=== PATIENT | female | born 1965 | race Caucasian/White ===

== ENCOUNTER → 2021-01-24 14:12 | Outpatient (CLI) | payer BC, SELFPAY ==
--- NOTE | ~2021-01-24 | MM_ITS ---
EXAMINATION: MM screening [facility] w etelvina HISTORY: Screening TECHNIQUE: Craniocaudal and mediolateral oblique 3-D tomosynthesis images were obtained and synthetic 2-D images were generated. CAD analysis was submitted and interpreted. COMPARISON: 12/17/2011 BREAST PARENCHYMAL COMPOSITION: There are scattered areas of fibroglandular density. FINDINGS: There are developing clusters of indeterminate calcifications in the upper outer quadrant o f both breasts. There are developing masses in both breasts as well. IMPRESSION: 1. Developing indeterminate bilateral breast calcifications and bilateral breast masses. 2. Additional mammographic views and possible breast ultrasound are recommended. BI-RADS Category 0: Incomplete: Needs additional imaging evaluation. Reviewed, dictated and finalized at location A. IMPRESSION: 1. Developing indeterminate bilateral breast calcifications and bilateral breas t masses. 2. Additional mammographic views and possible breast ultrasound are recommended . BI-RADS Category 0: Incomplete: Needs additional imaging evaluation.
== END ==
PROVIDERS: PCP Nurse Practitioner; Visit Provider Nurse Practitioner
DX: Z12.31 Encounter for screening mammogram for malignant neoplasm of breast (principal); R92.8 Other abnormal and inconclusive findings on diagnostic imaging of breast
CPT/HCPCS: 77063; 77067

== ENCOUNTER → 2021-03-04 07:57 | Outpatient (CLI) | payer BC, SELFPAY ==
--- NOTE | ~2021-03-04 | MMUS_ITS ---
EXAMINATION: MM diagnostic [facility] BI w etelvina, US breast BI complete HISTORY: Bilateral breast calcifications and bilateral breast masses reported on 01/24/2021 screening mammogram TECHNIQUE: Additional 3-D tomosynthesis images of both breasts were performed and synthetic 2-D image s were generated. CAD analysis was submitted and interpreted. High resolution complete bilateral [facility] ultrasound was performed. COMPARISON: 01/24/2021 bilateral digital screening mammogram 12/17/2011 bilateral diagnostic digital mammogram and bilateral breast ultrasound examination FINDINGS: MAMMOGRAPHIC FINDINGS: There are numerous scattered bilateral benign-appearing microcalcifications. Scattered bilateral circ umscribed opacities are noted, the largest measuring up to approximately 11 mm dimension in the upper outer right breast. No suspicious mass or architectural distortion is detected mammographically. ULTRASOUND: There are multiple bilateral simple and septated cysts, the largest situated on the right at 11:00 me asuring up to 7 x 9 x 14 mm. On the right at 10:00 7 cm from the nipple there is a parallel circumscribed 3.7 x 7 x 7.7 mm heterog eneous hypoechoic parallel circumscribed lesion with minimal internal vascularity signal on [facility]. There is through transmission and suggestions posterior enhancement. Six-month follow-up r ight breast ultrasound examination with attention to this area is recommended. On the left at 2:00 7 cm from the nipple there is a 4 x 4 by 5 mm hypoechoic lesion with no internal vascularity or posterior shadowing, likely benign. Six-month follow-up left breast ultrasound is anthony mmended with attention to this area. IMPRESSION: 1. Probable benign findings 2. Bilateral six-month follow-up breast ultrasound examination is recommended. BI-RADS category 3, probably benign findings. Reviewed, dictated and finalized at location A. IMPRESSION: 1. Probable benign findings 2. Bilateral six-month follow-up breast ultrasound examination is recommended. BI-RADS category 3, probably benign findings.
== END ==
PROVIDERS: PCP Nurse Practitioner; Visit Provider Nurse Practitioner
DX: R92.8 Other abnormal and inconclusive findings on diagnostic imaging of breast (principal)
CPT/HCPCS: 76641; 77062; 77066; G0279